=== PATIENT | male | born 1980 | race Caucasian/White ===

== ENCOUNTER 2020-02-02 14:01 | Emergency (ER) | payer OTHER, SELFPAY ==
[2020-02-02] VITALS (8 sets, daily range): BP systolic 121–148; BP diastolic 63–80; PULSE 52–85; RESP 14–20; TEMP 37.2; O2SAT 97–100
--- NOTE | ~2020-02-02 | CT_ITS ---
EXAMINATION: CT brain wo con DATE: 02/02/2020 16:18 INDICATION: Syncopal episode and fall with right-sided head injury TECHNIQUE: Computed tomography (CT) of the head was performed without intravenous contrast. Sagittal and coronal reconstructions were performed. The mA was adjusted according to patient size. Iterative reconstruction technique was employed. The dose-length product was 605.33 mGy-cm. COMPARISON: head CT dated 11/07/2012 FINDINGS: No fracture. No acute intracranial hemorrhage, acute infarction or abnormal extra axial fluid collect ion. Ventricles are normal and symmetric. No mass/mass effect. The orbits, paranasal sinuses and mast oid air cells are normal. IMPRESSION: 1. Normal head CT. Reviewed, dictated and finalized at location B. IMPRESSION: 1. Normal head CT.
--- NOTE | ~2020-02-02 | CT_ITS ---
EXAMINATION: CT cervical spine wo con DATE: 02/02/2020 16:18 INDICATION: Right-sided neck pain. TECHNIQUE: Computed tomography (CT) of the cervical spine was performed without intravenous contrast. Automated exposure control and iterative reconstruction technique were employed. The dose-length pro duct was 392.69 mGy-cm. COMPARISON: None FINDINGS: There is mild kyphosis of cervical spine. Vertebral body heights are normal. There is mildl y decreased disc height at C5-C6. At C7-T1, there is mild right and moderate left facet joint osteoar thritis. No neural foraminal stenosis. At C5-C6, there is mild central canal stenosis. IMPRESSION: 1. No fracture. 2. Mild cervical spondylosis. Reviewed, dictated and finalized at location A.
--- NOTE | ~2020-02-02 | XR_ITS ---
EXAMINATION: XR chest 2V DATE: 02/02/2020 16:23 INDICATION: Syncope. TECHNIQUE: Frontal and lateral views of the chest were obtained. COMPARISON: Chest 2 views 11/15/2016 FINDINGS: A calcified right lung nodule is consistent with old granulomatous disease. No pleural effu bere or pneumothorax. The heart size is normal. IMPRESSION: 1. No acute cardiopulmonary disease. Reviewed, dictated and finalized at location A.
--- NOTE | 2020-02-02 14:08 | ECG_ITS ---
Measurements Intervals [place] Rate: 69 P: 74 MS: 166 QRS: 77 QRSD: 116 T: 46 QT: 399 QTc: 429 Interpretive Statements SINUS RHYTHM POSSIBLE LEFT ATRIAL ENLARGEMENT INCOMPLETE RIGHT BUNDLE BRANCH BLOCK NONSPECIFIC ST & T-WAVE ABNORMALITY- INFERIOR LEADS BASELINE ARTIFACT- I, II, III, AVR, AVL, AVF BORDERLINE ECG Electronically Signed On 02-02-2020 14:25:41 CDT by Berhane Temple D.O.
[2020-02-02 14:16] LABS: Basophils Percent Auto 0.4 % (0.2-1.2); Eosinophils Absolute Auto 0.1 K/mm3 (0-0.3); Hematocrit 45.6 % (42.0-52.0); Hemoglobin 15.6 g/dL (14.0-18.0); Immature Granulocyte Absolute 0.02 K/mm3 (0.00-0.031); Immature Granulocyte Percent A 0.3 % (0-0.5); Lymphocytes Absolute Auto 1.59 K/mm3 (0.9-3.2); Lymphocytes Percent Auto 22.8 % (18.3-44.2); Mean Corpuscular HGB Conc 34.2 g/dl (32-36); Mean Corpuscular Hemoglobin 31.1 pg (26-34); Monocytes Absolute Auto 0.3 K/mm3 (0.1-0.6); Monocytes Percent Auto 4.7 % (2.6-8.5); Neutrophils Absolute Auto 4.9 K/mm3 (1.3-6.7); Neutrophils Percent Auto 69.8 % (45.5-73.1); Platelet Count Result 181 k/mm3 (150-375); Red Blood Count 5.01 M/mm3 (4.6-6.20); Red Cell Distribution Width 12.2 % (11.5-14.5)
[2020-02-02 14:27] LABS: Anion Gap 6 mmol/L (8-16); Blood Urea Nitrogen 16 mg/dL (9-20); Calcium 9.4 mg/dL (8.4-10.2); Carbon Dioxide 35 mmol/L (22-30); Chloride 101 mmol/L (98-107); Estimated CRCL calculation 86 ml/min; Estimated Glomerular Filt Rate > 60; Glucose 116 mg/dL (75-110); Potassium 3.6 mmol/L (3.4-5.0); Sodium 142 mmol/L (137-145)
--- NOTE | 2020-02-02 16:07 | ED.SYNCOPE ---
HPI - Syncope General Chief Complaint: Syncope Stated Complaint: FALL ON SATURDAY Time Seen by Provider: 02/02/20 15:14 Source: patient Mode of arrival: ambulatory Limitations: no limitations History of Present Illness HPI narrative: This is a 39-year-old male that presents the emergency department for syncopal episode 3 days ago. Reports he was reading on the Internet about some symptoms he had been having. This got him worried and anxious. Reports he was fearful. Reports he was in his bathroom at home and started to feel lightheaded and like his vision was going black. Reports he called for his daughter and then passed out. EMS was called and evaluated the patient and recommended he transport and be seen. He refused further treatment and transfer. Reports he has had several episodes similar to this in the past. Reports since the episode he has had headaches and neck pain. Denies fever, vision changes, vomiting, chest pain, palpitations, shortness of breath. Related Data Home Medications Medication Instructions Recorded Confirmed dextromethorphan HBr 5 mg/5 mL 10 mg PO Q6-8H PRN ml 04/15/19 01/19/20 oral syrup Allergies Allergy/AdvReac Type Severity Reaction Status Date / Time Penicillins Allergy Unknown Unknown Verified 01/19/20 15:49 Review of Systems Review of Systems: Narrative: CONSTITUTIONAL: Denies fever EYES: Denies visual changes CARDIOVASCULAR: Denies chest pain, palpitations RESPIRATORY: Denies dyspnea. GASTROINTESTINAL: Denies vomiting MUSCULOSKELETAL: Reports joint pain, and myalgia. NEUROLOGIC: Reports headache. Denies numbness, or weakness. All systems reviewed & are unremarkable except as noted in HPI and below PMFSH Past Medical History Medical History Asthmatic bronchitis Chronic ear infection multiple times at a young age Lactose intolerance Pyloric stenosis Scoliosis Tumor right leg tumor removal Surgical History Surgical History History of abdominal surgery History of foot surgery History of tympanostomy multiple at a young age Family History Family History Grandparent Family history of cardiovascular disease Family history of coronary artery disease Social History Social History Smoking status: Never smoker Second hand tobacco smoke exposure: No Alcohol intake: current Substance use: never Substance use type: does not use Course Vital Signs Vital signs: Vital Signs Temperature 99.0 F 02/02/20 14:04 Pulse Rate 66 02/02/20 14:04 Respiratory Rate 20 02/02/20 14:04 Blood Pressure 142/65 H 02/02/20 14:04 Pulse Oximetry 100 02/02/20 14:04 Temperature 99.0 F 02/02/20 14:04 Pulse Rate 64 02/02/20 14:47 Respiratory Rate 14 02/02/20 14:47 Blood Pressure 148/79 H 02/02/20 14:47 Pulse Oximetry 98 02/02/20 14:47 MDM - Syncope Lab Data Result diagrams: 02/02/20 14:09 02/02/20 14:09 Labs: Lab Results 02/02/20 02/02/20 Range/Units 14:09 14:09 WBC 7.0 (4.5-10.0) K/mm3 RBC 5.01 (4.6-6.20) M/mm3 Hgb 15.6 (14.0-18.0) g/dL Hct 45.6 (42.0-52.0) % MCV 91.0 (80-100) fl MCH 31.1 (26-34) pg MCHC 34.2 (32-36) g/dl RDW 12.2 (11.5-14.5) % Plt Count 181 (150-375) k/mm3 MPV 9.0 (7.4-10.4) fl Immature Gran % (Auto) 0.3 (0-0.5) % Neut % (Auto) 69.8 (45.5-73.1) % Lymph % (Auto) 22.8 (18.3-44.2) % [place] % (Auto) 4.7 (2.6-8.5) % Eos % (Auto) 2.0 (0-4.4) % Baso % (Auto) 0.4 (0.2-1.2) % Lymph # (Auto) 1.59 (0.9-3.2) K/mm3 [place] # (Auto) 0.3 (0.1-0.6) K/mm3 Eos # (Auto) 0.1 (0-0.3) K/mm3 Baso # (Auto) 0.0 (0.0-0.1) K/mm3 Abs Immat Gran (auto) 0.02 (0.00-0.031) K/mm3 Absolute Neuts (auto) 4.
--- NOTE | 2020-02-02 16:08 | PC.NURSE ---
Pt to CT scan via stretcher.
[2020-02-02 16:22] LABS: Prothrombin Time 13.1 Seconds (11.1-14.7)
[2020-02-02 16:23] LABS: Partial Thromboplastin Time 32.6 SECONDS (22.3-36.8)
[2020-02-02 16:32] LABS: D Dimer 0.27 ug/mL (<0.48)
--- NOTE | 2020-02-02 16:49 | ED.SYNCOPE ---
HPI - Syncope General Chief Complaint: Syncope Stated Complaint: FALL ON SATURDAY Time Seen by Provider: 02/02/20 15:14 Source: patient Mode of arrival: ambulatory Limitations: no limitations History of Present Illness HPI narrative: This is a 39 year old male that presents to the ER for a syncopal episode 3 days ago. Reports he was in his bathroom at home. He was looking up some symptoms he has been having recently and got very anxious and fearful. Reports he started to feel lightheaded and his vision was going black. Reports he called for his daughter and then passed out. Reports EMS was called and he was encouraged to be transported and be seen. Patient refused further evaluation and transport. Patient reports he has had multiple episodes like this in the past. He called his primary and was encouraged to come to the ED for evaluation. Reports since the syncopal episode he has had headaches and neck pain. Denies fever, chest pain, palpitations, vision changes, vomiting, numbness or weakness. Related Data Home Medications Medication Instructions Recorded Confirmed dextromethorphan HBr 5 mg/5 mL 10 mg PO Q6-8H PRN ml 04/15/19 01/19/20 oral syrup Allergies Allergy/AdvReac Type Severity Reaction Status Date / Time Penicillins Allergy Unknown Unknown Verified 01/19/20 15:49 Review of Systems Review of Systems: Narrative: CONSTITUTIONAL: Denies fever EYES: Denies visual changes CARDIOVASCULAR: Denies chest pain, palpitations RESPIRATORY: Denies dyspnea. GASTROINTESTINAL: Denies vomiting MUSCULOSKELETAL: Reports joint pain, and myalgia. NEUROLOGIC: Reports headache. Denies numbness, or weakness. All systems reviewed & are unremarkable except as noted in HPI and below [facility] Past Medical History Medical History (Updated 02/02/20 @ 18:24 by Sugar Mariano PA-C) Asthmatic bronchitis Chronic ear infection multiple times at a young age Lactose intolerance Pyloric stenosis Scoliosis Tumor right leg tumor removal Surgical History Surgical History History of abdominal surgery History of foot surgery History of tympanostomy multiple at a young age Family History Family History Grandparent Family history of cardiovascular disease Family history of coronary artery disease Social History Social History (Reviewed 01/19/20 @ 17:08 by MARLENI Johnson Smoking status: Never smoker Second hand tobacco smoke exposure: No Alcohol intake: current Substance use: never Substance use type: does not use Exam Narrative: Exam Narrative: GENERAL: Well-appearing, well-nourished, and in no acute distress. HEAD: Normocephalic, atraumatic. EYES: PERRLA and EOMI. ENT: Nares clear, no rhinorrhea or epistaxis. Mucous membranes moist. Oropharynx without tonsillar hypertrophy exudate or other lesions. Bilateral TMs pearly singh non-bulging NECK: Supple. No adenopathy or masses. No carotid bruits or JVD CHEST: Clear to auscultation. No respiratory distress. No wheezes rales or rhonchi HEART: Regular rate and rhythm. No murmur heard. Normal peripheral pulses. EXTREMITIES: Normal range of motion. No edema. Strength equal in bilateral upper and lower extremities (5/5) SKIN: Warm, dry, no rash. NEURO: No focal deficits. Alert and oriented x3. CN II-XII grossly intact PSYCH: Normal mood and affect Course Consultations Consultation #1: Spoke with on-call primary about work-up. Date: 02/02/20 Time: 18:28 Vital Signs Vital signs: Vital Signs Temperature 99.0 F 02/02/20 14:04 Pulse Rate 66 02/02/20 14:04 Respiratory Rate 20 02/02/20 14:04 Blood Pressure 142/65 H 02/02/20 14:04 Pulse Oximetry 100 02/02/20 14:04 Temperature 99.0 F 02/02/20 14:04 Pulse Rate 70 02/02/20 18:01 Respiratory Rate 18 02/02/20 17:47 Blood Pressure 130/80 02/02/20 18:01 Pulse Oximetry
[2020-02-02 17:05] LABS: Troponin I < 0.012 ng/mL (0.000-0.034)
[2020-02-02] MEDS: ACETAMINOPHEN 500 MG TABLET 1000 MG PO (18:03)
== END 2020-02-02 18:54 | disposition home or self-care (01) ==
PROVIDERS: Emergency Medicine; Physician Assistant; Emergency Provider Emergency Medicine; PCP Family Medicine
DX: R55 Syncope and collapse (principal); J45.909 Unspecified asthma, uncomplicated; E73.9 Lactose intolerance, unspecified; M47.812 Spondylosis without myelopathy or radiculopathy, cervical region; I45.10 Unspecified right bundle-branch block; R94.31 Abnormal electrocardiogram [ECG] [EKG]
CPT/HCPCS: 36415; 70450; 71046; 72125; 80048; 84484; 85025; 85380; 85610; 85730; 93005; 99284; A9270

== ENCOUNTER 2021-03-28 08:17 | Outpatient (RCR) | payer OTHER, SELFPAY ==
[2021-03-28 14:10] VITALS: BP 127/58; PULSE 60; RESP 20; TEMP 36.5; O2SAT 99
[2021-03-28] MEDS: FAMOTIDINE 20 MG TABLET PO (14:12)
[2021-03-28] MEDS: ACETAMINOPHEN 325 MG TABLET 650 MG PO (14:12)
[2021-03-28] MEDS: diphenhydrAMINE HCl CAP 25 MG CAPSULE PO (14:12)
[2021-03-28 15:49] VITALS: BP 132/65
--- NOTE | 2021-03-29 09:41 | PC.NURSE ---
Called MR Fowler, and he is doing much better and doing good today. He has no questions for us.
== END 2021-03-28 17:00 ==
LOC: AMCINF 08:17
PROVIDERS: PCP Physician Assistant; Visit Provider Internal Medicine Hematology & Oncology
DX: U07.1 COVID-19 (principal)
CPT/HCPCS: A9270; M0245; Q0245

== ENCOUNTER 2021-06-06 08:36 | Outpatient (CLI) | payer OTHER, SELFPAY ==
--- NOTE | ~2021-06-06 | CT_ITS ---
EXAMINATION: CT brain wo con DATE: 06/06/2021 09:09 INDICATION: Headache. TECHNIQUE: Computed tomography (CT) of the head was performed without intravenous contrast. The mA wa s adjusted according to patient size. Iterative reconstruction technique was employed. The dose-lengt h product was 681.00 mGy-cm. COMPARISON: Head CT 02/02/2020 FINDINGS: There is no intracranial hemorrhage, acute infarction, or abnormal intracranial mass lesion . The ventricles are normal in size. The orbits are normal. There is mild mucosal thickening in the p aranasal sinuses. The mastoid air cells are normal. IMPRESSION: 1. Normal brain. Reviewed, dictated and finalized at location A. [employer] IMPRESSION: 1. Normal brain.
== END 2021-06-06 08:37 | disposition home or self-care (01) ==
LOC: ANHIMG 08:40
PROVIDERS: PCP Family Medicine; Visit Provider Family Medicine
DX: R51.9 Headache, unspecified (principal)
CPT/HCPCS: 70450

== ENCOUNTER 2023-02-12 08:22 | Outpatient (CLI) | payer OTHER, SELFPAY ==
--- NOTE | ~2023-02-12 | CT_ITS ---
CT of the Abdomen and Pelvis: Indication: Abdominal pain Technique: 2.5 mm axial scans were obtained through the abdomen and pelvis following intravenous adm inistration of 100 cc of Omnipaque 350. Dose reduction technique was used on this scan by utilizing a utomated exposure control and iterative reconstruction technique. The dose-length product (DLP) was 4 60.49 mGy-cm. Findings: Scans through the lung bases are unremarkable. The liver, spleen, pancreas, gallbladder, adrenals and kidneys are within normal limits. No evidence of aortic aneurysm. No lymphadenopathy. No bowel obstruction or bowel wall thickening. There is no evidence to suggest acute appendicitis. Images through the pelvis were performed. Urinary bladder unremarkable. Prostate gland and seminal ve sicles are unremarkable. No ascites. Impression: No significant abnormalities seen. Reviewed, dictated and finalized at [facility]. LINER Impression: No significant abnormalities seen.
== END 2023-02-12 08:23 | disposition home or self-care (01) ==
PROVIDERS: PCP Family Medicine; Visit Provider Nurse Practitioner Family
DX: R10.32 Left lower quadrant pain (principal)
CPT/HCPCS: 74177; Q9967